=== PATIENT | female | born 1970 | race African-American/Black ===

== ENCOUNTER 2016-12-25 17:38 | Emergency (ER) | payer SELFPAY ==
[~2016-12-25] VITALS: Ht 154.9 cm; Wt 72.6 kg
[2016-12-25 17:44] VITALS: BP 149/95
[2016-12-25] MEDS ORDERED: KETOROLAC TROMETH 60MG/2ML VIAL IM ONE (20:00)
[2016-12-25] MEDS ORDERED: ONDANSETRON HCL 4 MG/2 ML VIAL IM ONE (20:00)
== END 2016-12-25 20:27 | disposition home or self-care (01) ==
LOC: ER 17:38
DX: G43.909 Migraine, unspecified, not intractable, without status migrainosus (principal); H70.90 Unspecified mastoiditis, unspecified ear; Z76.0 Encounter for issue of repeat prescription
CPT/HCPCS: 70450; 96372; 99284; J1885; J2405